=== PATIENT | male | born 1990 | race Caucasian/White ===

== ENCOUNTER → 2020-11-18 14:27 | Outpatient (CLI) | payer OTHER, SELFPAY | PROVIDERS: PCP Internal Medicine Adolescent Medicine; Visit Provider Internal Medicine Adolescent Medicine | DX: Z20.822 Contact with and (suspected) exposure to COVID-19 (principal); U07.1 COVID-19 | CPT/HCPCS: U0003 ==

== ENCOUNTER → 2020-11-26 15:11 | Outpatient (CLI) | payer OTHER, SELFPAY ==
[2020-11-26 16:35] LABS: Coronavirus 19 IgG Antibody Negative (Negative); Coronavirus 19 IgM Antibody Negative (Negative)
== END ==
PROVIDERS: Visit Provider Internal Medicine Adolescent Medicine
DX: U07.1 COVID-19 (principal)
CPT/HCPCS: 36415; 86328

== ENCOUNTER 2022-05-31 21:03 | Emergency (ER) | payer OTHER, SELFPAY ==
[2022-05-31 21:04] VITALS: BP 124/78; PULSE 125; RESP 17; TEMP 37.2; O2SAT 95; BMI 28.8
[2022-05-31 21:16] LABS: Influenza A, PCR Not Detected (NotDetected); Influenza B, PCR Not Detected (NotDetected)
[2022-05-31 21:28] LABS: Strep Scrn Group A (Rapid) Negative (Negative)
[2022-05-31 21:49] LABS: Coronavirus 19, PCR Detected (NotDetected)
--- NOTE | 2022-05-31 22:30 | XR_ITS ---
PROCEDURE INFORMATION: Exam: XR Chest Exam date and time: 05/31/2022 10:25 PM Age: 32 years old Clinical indication: Shortness of breath and other: Covid; Additional info: SOA, covid+ TECHNIQUE: Imaging protocol: Radiologic exam of the chest. Views: 2 views. COMPARISON: No relevant prior studies available. FINDINGS: Lungs: Lungs are otherwise clear. Pleural spaces: Unremarkable. No pleural effusion. No pneumothorax. Heart/Mediastinum: Unremarkable. No cardiomegaly. Bones/joints: Unremarkable. Soft tissues: Small nodular focus over the left inferior lung base may represent nipple shadow. IMPRESSION: Probable left basilar nipple shadow could be confirmed with repeat frontal view with nipple markers. Otherwise, normal exam.
[2022-05-31 22:36] LABS: Basophils # 0.1 K/mm3 (0-0.2); Basophils % 0.9 % (0.1-2.0); Eosinophils # 0.2 K/mm3 (0.0-0.4); Eosinophils % 1.6 % (0.1-12.0); Hematocrit 49.9 % (42.0-52.0); Hemoglobin 17.6 g/dL (14.1-18.0); Lymphocytes # 0.2 K/mm3 (0.7-4.5); Lymphocytes % 2.1 % (10-50); Mean Corpuscular HGB Conc 35.3 g/dL (31.8-35.4); Mean Corpuscular Hemoglobin 31.5 pg (27.0-31.2); Mean Corpuscular Volume 89.2 fl (80-94); Monocytes # 0.6 K/mm3 (0.1-1.0); Monocytes % 5.8 % (1.7-9.3); Neutrophils # 9.1 K/mm3 (1.8-7.8); Neutrophils % 89.5 % (37.0-80.0); Platelet Count 171 K/mm3 (142-424); Red Blood Count 5.59 M/mm3 (4.60-6.20); Red Cell Distribution Width 12.1 % (11.5-17.5); White Blood Count 10.1 K/mm3 (4.8-10.8)
[2022-05-31 22:40] LABS: MANUAL DIFFERENTIAL MANUAL DIFFERENTIAL (MANUAL DIFF)
[2022-05-31 22:41] LABS: Alanine Aminotransferase 47 U/L (12-78); Albumin Level 4.2 g/dl (3.5-5.0); Albumin/Globulin Ratio 1.3 (1.1-1.8); Alkaline Phosphatase 88 U/L (38-126); Amylase 85 U/L (30-110); Anion Gap 10.9 mEq/L (5-15); Aspartate Amino Transferase 52 U/L (17-59); Bilirubin,Total 0.5 mg/dl (0.2-1.3); Blood Urea Nitrogen 14 mg/dl (9-20); Calcium 9.6 mg/dl (8.4-10.2); Carbon Dioxide 26 mmol/L (22.0-30.0); Chloride 100 mmol/L (98-107); Creatinine Clearance Estimated 101 mL/min (50-200); Estimated Glomerular Filt Rate 65 ml/min (>60); GFR (African American) 78 ML/MIN (>60); Globulin 3.2 g/dL (1.3-3.2); Glucose 139 mg/dl (74-100); Potassium 3.9 mmoL/L (3.5-5.1); Sodium 133 mmol/L (136-145); Total Protein,Serum 7.4 g/dl (6.3-8.2)
[2022-05-31 22:42] LABS: Lipase 118 U/L (23-300)
[2022-05-31 22:47] LABS: C-Reactive Protein 16.2 mg/L (0-4); Lymphocytes % 5 % (10-50); Monocytes % 1 % (2-9); Neutrophils % 86 % (42-76); Platelet Estimate Normal; RBC Morphology Normal; Total Cells Counted 100
--- NOTE | 2022-05-31 22:49 | [facility].EDWEAK ---
ED Disposition Clinical Impression: COVID-19 Disposition: Home, Self-Care Condition on Discharge: Good Instructions: DI for COVID-19 (Suspected or Confirmed ) Additional Instructions: fluids and call pcp for follow up Referrals: Thor Ortez MD [Primary Care Provider] - - Critical Care Critical Care Time: No Attestation: On 05/31/22, the high probability of a clinically significant, sudden or life threatening deterioration of the following system(s) required my full and direct attention, intervention and personal management. The time I documented below is in addition to time spent performing reported procedures but includes the following listed in this critical care notation. Medical Decision Making - Medical Records Medical records reviewed: Yes: I reviewed the patient's medical records. - [facility] Inquiry Pt receiving controlled substance: No Vital Signs: 05/31/22 21:04 Temperature 98.9 F Temperature Source Oral Pulse Rate [Right] 125 H Respiratory Rate 17 Blood Pressure [Right Arm] 124/78 Blood Pressure Mean [Right Arm] 93 Blood Pressure Source [Right Arm] Automatic Cuff 02 Sat by Pulse Oximetry 95 Oxygen Delivery Method Room Air - Lab Data Lab results reviewed: Yes: I reviewed the patient's lab results. Lab Results 05/31/22 21:09: SARS-CoV-2 (PCR) Detected A, Influenza A Untype (PCR) Not detected, Influenza Type B (PCR) Not detected 05/31/22 21:09: Group A Strep Rapid Negative 05/31/22 21:23: C-Reactive Protein 16.2 H, Amylase 85 05/31/22 21:23: WBC 10.1, RBC 5.59, Hgb 17.6, Hct 49.9, MCV 89.2, MCH 31.5 H, MCHC 35.3, RDW 12.1, Plt Count 171, MPV 9.0, Neut % (Auto) 89.5 H, Lymph % (Auto) 2.1 L, [place] % (Auto) 5.8, Eos % (Auto) 1.6, Baso % (Auto) 0.9, Neut # (Auto) 9.1 H, Lymph # (Auto) 0.2 L, [place] # (Auto) 0.6, Eos # (Auto) 0.2, Baso # (Auto) 0.1, Total Counted 100, Neutrophils % (Manual) 86 H, Band Neutrophils % 8.0, Lymphocytes % (Manual) 5 L, Monocytes % (Manual) 1 L, Platelet Estimate Normal, RBC Morphology Normal 05/31/22 21:23: Sodium 133 L, Potassium 3.9, Chloride 100, Carbon Dioxide 26, Anion Gap 10.9, BUN 14, Creatinine 1.30 H, Estimated Creat Clear 101, Estimated GFR 65, Est GFR ( Amer) 78, Glucose 139 H, Calcium 9.6, Total Bilirubin 0.5, AST 52, ALT 47, Alkaline Phosphatase 88, Total Protein 7.4, Albumin 4.2, Globulin 3.2, Albumin/Globulin Ratio 1.3 05/31/22 21:23: Lipase 118 Result diagrams: 05/31/22 21:23 05/31/22 21:23 Orders (Tests/Meds): ED MEDICATIONS Generic Name Dose Route Start Last Admin Trade Name Freq PRN Reason Stop Dose Admin Sodium Chloride 1,000 mls @ 999 mls/hr 05/31/22 22:30 Sod Chlor 0.9% 1000ml Bag IV 05/31/22 23:30 .Q1H1M ILA Sodium Chloride 1,000 mls @ 999 mls/hr 05/31/22 22:30 Sod Chlor 0.9% 1000ml Bag IV 05/31/22 23:30 .Q1H1M ILA Discontinued Medications Generic Name Dose Route Start Last Admin Trade Name Freq PRN Reason Stop Dose Admin Ketorolac Tromethamine 30 mg 05/31/22 22:26 Ketorolac 30mg/Ml Vial IV 05/31/22 22:27 ONCE ONE Promethazine HCl 25 mg 05/31/22 22:26 Promethazine Hcl 25mg/Ml 1ml Vial IV 05/31/22 22:27 ONCE ONE Sodium Chloride 25 ml 05/31/22 22:26 Sodium Chloride 0.9% 25ml Bag IV 05/31/22 22:27 ONCE ONE ORDERS Category Date Time Status CXR 2 view (NOT portable) [XR chest 2V] Stat Exams 05/31/22 22:30 Taken Amylase Stat Lab 05/31/22 21:23 Results C-Reactive Protein Stat Lab 05/31/22 21:23 Results Erythrocyte Sedimentation Rate Stat Lab 05/31/22 21:23 Received Procalcitonin Stat Lab 05/31/22 21:23 Results UA [Urinalysis and Microscopic] Stat Lab 07/23/22 21:13 Ordered Strep Screen Confirmation Stat Micro 05/31/22 21:09 Received - Radiology Data #1 Image(s): Chest Image Reviewed: Yes I reviewed the patient's radiology image Preliminary Findings: Normal/NAD Medical Decision Narrative: pt has covid-19 with stable labs and xray Weakne
[2022-05-31 23:00] LABS: Procalcitonin 0.097 ng/mL (0.0-2.0)
[2022-05-31 23:02] LABS: Erythrocyte Sedimentation Rate 2 mm/hr (0-15)
[2022-05-31 23:07] VITALS: BP 102/75; PULSE 88; RESP 18; TEMP 36.8; O2SAT 99
== END 2022-05-31 23:13 | disposition home or self-care (01) ==
PROVIDERS: Emergency Provider Emergency Medicine; PCP Internal Medicine Adolescent Medicine
DX: U07.1 COVID-19 (principal); R53.1 Weakness; R51.9 Headache, unspecified; M79.10 Myalgia, unspecified site; R07.0 Pain in throat; R11.2 Nausea with vomiting, unspecified; R05.9 Cough, unspecified; R06.02 Shortness of breath; R09.89 Other specified symptoms and signs involving the circulatory and respiratory systems; H92.02 Otalgia, left ear
CPT/HCPCS: 71046; 80053; 82150; 83690; 84145; 85007; 85025; 85651; 86140; 87430; 96361; 96374; 99153; 99284; C9803; U0003; U0005